=== PATIENT | male | born 2000 | race Two or more races ===

== ENCOUNTER 2022-01-24 08:40 | Emergency (ER) | payer MEDICAID, OTHER ==
[~2022-01-24] VITALS: Ht 188 cm; Wt 59.4 kg
[2022-01-24 08:52] VITALS: BP 126/83
[2022-01-26] MEDS ORDERED: PRED20TA2 PO (00:50)
[2022-01-26] MEDS ORDERED: DIPH25CA66 PO (00:50)
== END 2022-01-24 12:34 | disposition left against medical advice (07) ==
LOC: ER 08:40
DX: R21 Rash and other nonspecific skin eruption (principal); Z53.21 Procedure and treatment not carried out due to patient leaving prior to being seen by health care provider